=== PATIENT | female | born 1970 | race Caucasian/White ===

== ENCOUNTER 2022-06-16 08:25 | Day surgery (SDC) | payer OTHER ==
[~2022-06-16] VITALS: Ht 165.1 cm; Wt 71.7 kg
[2022-06-16] MEDS ORDERED: MIDAZOLAM 2 MG/2 ML VIAL ONE (09:16)
[2022-06-16] MEDS ORDERED: diphenhydrAMINE 50 MG/ML VIAL ONE (09:16)
[2022-06-16] MEDS ORDERED: fentaNYL citrate 0.05 MG/ML VIAL ONE (09:16)
[2022-06-16] MEDS ORDERED: fentaNYL citrate 0.05 MG/ML VIAL IVP ONE (10:00)
[2022-06-16] MEDS ORDERED: MIDAZOLAM 2 MG/2 ML VIAL IVP ONE (10:00)
== END 2022-06-16 10:35 | disposition home or self-care (01) ==
LOC: MDS 08:25 → MMU 08:25 → MDS 10:35
PROVIDERS: ATTEND Internal Medicine Gastroenterology
DX: K59.00 Constipation, unspecified (principal); K21.9 Gastro-esophageal reflux disease without esophagitis; K44.9 Diaphragmatic hernia without obstruction or gangrene; Z83.71 Family history of colonic polyps; I10 Essential (primary) hypertension; Z79.899 Other long term (current) drug therapy; F17.210 Nicotine dependence, cigarettes, uncomplicated; Z20.822 Contact with and (suspected) exposure to COVID-19
CPT/HCPCS: 43239; 45378; 87426; J2250; J3010; J1200